=== PATIENT | female | born 1970 | race Caucasian/White ===

== ENCOUNTER 2023-10-25 14:07 | Emergency (ER) | payer OTHER ==
[2023-10-25 14:49] VITALS: TEMP 98.2; O2SAT 99
[2023-10-25] MEDS ORDERED: TORAdol 30 mg Injection IM ONE (15:08)
[2023-10-25] MEDS ORDERED: Norflex 60 MG/2 ML IM ONE (15:08)
[2023-10-25] MEDS ORDERED: Norflex 60 MG/2 ML ONE (15:14)
[2023-10-25] MEDS ORDERED: TORAdol 30 mg Injection ONE (15:14)
--- NOTE | 2023-10-25 15:27 | ERPHSYRPT ---
- History of Present Illness Time Seen by Provider: 10/25/23 14:21 Source: patient Exam Limitations: no limitations Patient Subjective Stated Complaint: Chronic neck pain Triage Nursing Assessment: 52 yr old female pt arrives to ED via POV. Pt pre sents with complaints of left sided chronic neck pain. Pt states that the pain radiates down her left arm. Pt denies injury. Pt is alert, oriented and not in distress. Pt's skin is p/w/d. Pt has no other complaints at this time. Physician History: 52 years old female with history of fibromyalgia, seizure disorder presented in the ER with complaints of increasing left-sided neck pain. Patient reports history of chronic neck and back pain with surgical intervention in the lower back and neck pain is getting worse for almost a month, it is a dull aching burning sensation, feeling of warmth in the left lateral neck with radiation to the left upper extremity making limited mobility of the neck. No weakness of left upper extremity. Denies any fall or trauma. Allergies/Adverse Reactions: amoxicillin Allergy (Mild, Verified 10/25/23 14:29) Rash vancomycin Allergy (Mild, Verified 10/25/23 14:29) Rash Hx Tetanus, Diphtheria Vaccination/Date Given: Yes Hx Influenza Vaccination/Date Given: No Hx Pneumococcal Vaccination/Date Given: No Travel Risk - International Travel Have you traveled outside of the country in past 3 weeks: No - Coronavirus Screening Are you exhibiting any of the following symptoms?: No Close contact with a COVID-19 positive Pt in past 14-21 Days: No - Vaccine Status Have you recieved a Covid-19 vaccination: Yes Piped Pocket Machine Operator: Moderna - Vaccination Dates Date of 2cond Vaccination (if applicable): 2019 - Review of Systems Constitutional: No Symptoms Eyes: No Symptoms Ears, Nose, & Throat: No Symptoms Respiratory: No Symptoms Cardiac: No Symptoms Abdominal/Gastrointestinal: No Symptoms Musculoskeletal: Arthralgias, Back Pain, Neck Pain Skin: No Symptoms Neurological: No Symptoms Endocrine: No Symptoms Hematologic/Lymphatic: No Symptoms - Past Medical History Pertinent Past Medical History: Yes Neurological History: Epilepsy ENT History: No Pertinent History Cardiac History: Hypertension Respiratory History: Asthma Endocrine Medical History: Diabetes Type II Musculoskeletal History: Fibromyalgia GI Medical History: No Pertinent History History: No Pertinent History Psycho-Social History: Anxiety, Depression Female Reproductive Disorders: No Pertinent History Other Medical History: Hiatal hernia - Past Surgical History Past Surgical History: Yes Cardiac: No Pertinent History Respiratory: No Pertinent History Gastrointestinal: Hernia Repair Genitourinary: No Pertinent History Musculoskeletal: Orthopedic Surgery Female Surgical History: Hysterectomy, Section Other Surgical History: back surgeries, disc fusions, carpel tunnel - Social History Smoking Status: Current every day smoker How long have you smoked: 30 years Drug Use: none Patient Lives Alone: No - Nursing Vital Signs Nursing Vital Signs: Initial Vital Signs Temperature 98.2 F 10/25/23 14:27 Pulse Rate 76 10/25/23 14:27 Respiratory Rate 18 10/25/23 14:27 Blood Pressure 137/79 10/25/23 14:27 O2 Sat by Pulse Oximetry 99 10/25/23 14:27 Pain Scale Pain Intensity 8 - Physical Exam General Appearance: no apparent distress Eye Exam: PERRL/EOMI Ears, Nose, Throat Exam: normal ENT inspection Neck Exam: normal inspection, supple, limited range of motion, other (Tenderness left sternomastoid and trapezius area. Restricted range of motion on the right and left with reproducible pain in the left trapezius area.), No midline tenderness Respiratory Exam: normal breath sounds, lungs clear Cardiovascular Exam: regular rate/rhythm, normal heart sounds Back Exam: normal inspection Extremity Exam: normal inspection, normal range of motion, pelvis stable Neurologic Exam: alert, oriented x 3, cooperative, unit controller II-XII nml as tested, nml station & gait, sensation nml, No normal mood/affect, No motor deficits Skin Exam: normal color SpO2 Interpretation: normal SpO2: 99 O2 Delivery: Room Air Ordered Tests: Active Orders 24 hr Category Date Time Status CERVICAL SPINE WO CONTRAST [CT] Stat Exams 10/25/23 15:08 Completed Medication Summary Discontinued Medications Generic Name Dose Route Start Last Admin Trade Name Freq PRN Reason Stop Dose Admin Ketorolac Tromethamine 30 mg 10/25/23 15:08 10/25/23 15:18 Ketorolac Tromethamine 30 Mg/Ml Inj IM 10/25/23 15:09 30 mg STAT ONE Administration Ketorolac Tromethamine Confirm 10/25/23 15:14 Ketorolac Tromethamine 30 Mg/Ml Inj Administered 10/25/23 15:15 Dose 30 mg .ROUTE .STK-MED ONE Orphenadrine Citrate 60 mg 10/25/23 15:08 10/25/23 15:18 Orphenadrine Citrate 60 Mg/2 Ml Vial IM 10/25/23 15:09 60 mg STAT ONE Administration Orphenadrine Citrate Confirm 10/25/23 15:14 Orphenadrine Citrate 60 Mg/2 Ml Vial Administered 10/25/23 15:15 Dose 60 mg .ROUTE .[employer] ONE - Progress Progress Note: 10/25/23 16:40 52 years old is evaluated for left-sided neck pain with radiation to the left upper extremity. Patient description of pain seems to be neuropathic. She has no weakness in the left upper extremity. I have given her a dose of Toradol and Norflex, on reevaluation heart pain is better and able to move her neck better. Patient CT cervical spine showed minimal C6/C7 broad-based bulge which corresponds to her level of pain. Patient is advised to have follow-up outpatient with neurosurgery for further evaluation. I will give her muscle relaxants to go home and also Zofran as patient does not take hydrocodone which makes her nauseated. I will also give her NSAIDs to go home. Discussed signs symptoms of worsening needing return to ER which she seems understanding. Stable for discharge. Counseled pt/family regarding: diagnosis, need for follow-up, rad results Medical Desision Making - Diagnostic Testing Diagnostic test were ordered, analyzed, and reviewed by me: Yes Radiological Interpretation: Reviewed by me - Risk of complications The pt has a mod risk of morbidity or mortality based on: Need for prescription drug management - Departure Departure Disposition: Home Clinical Impression: Cervicalgia Condition: Stable Critical Care Time: No Referrals: BELLA NEELY DO [Primary Care Provider] - Follow up with PCP 1 day Instructions: Generalized Neck Pain (DC), Neck Pain Exercises Additional Instructions: Take Tylenol/ibuprofen as needed. Continue with your pain medications. Follow- up with primary care/neurosurgery for further evaluation and possible need for MRI. Return to ER for any worsening. Prescriptions: Ibuprofen 600 mg PO Q6HPRN PRN 10 Days #20 tablet PRN Reason: Pain Cyclobenzaprine HCl 10 mg [Flexeril 10 MG] 10 mg PO TID #20 tablet Ondansetron ODT 4 MG [Zofran Odt 4 mg] 1 ea PO QIDPRN PRN #7 tablet PRN Reason: n/v
--- NOTE | 2023-10-25 16:34 | XRAY ---
Indication: Left neck pain. Multiple contiguous axial images obtained through the cervical spine. Sagittal and coronal reformatted images obtained. Comparison: None Anatomic variant for nonunited posterior arch C1. Otherwise no acute fracture, suspicious bony lesions, or spinal canal stenosis. Minimal C6-C7 broad-based disc bulge. Facets are symmetric. Sagittal and coronal reformatted images demonstrates lordotic straightening, positional versus paraspinal spasm. Vertebral body heights/disc spaces maintained. No acute compression fracture, subluxation, or jumped facet. Normal appearing craniocervical junction. Visualized noncontrasted soft tissues demonstrates minimal right carotid calcifications. Lung apices and base of brain unremarkable. Impression: Lordotic straightening, minimal C6-C7 broad-based disc bulge, and minimal right carotid calcifications. Remaining CT cervical spine is negative.
[2023-10-25 16:58] VITALS: BP 130/74; PULSE 80; RESP 19
== END 2023-10-25 16:58 | disposition home or self-care (01) ==
LOC: ED 14:07
DX: M54.2 Cervicalgia (principal); I10 Essential (primary) hypertension; E11.9 Type 2 diabetes mellitus without complications; Z79.899 Other long term (current) drug therapy; Z72.0 Tobacco use
CPT/HCPCS: 72125; 96372; 99283; J1885; J2360

== ENCOUNTER 2023-11-12 19:08 | Emergency (ER) | payer OTHER ==
--- NOTE | 2023-11-12 19:18 | ERPHSYRPT ---
- History of Present Illness Time Seen by Provider: 11/12/23 19:18 Source: patient, EMS Exam Limitations: no limitations Physician History: This is a 52-year-old white female patient who presents to the emergency department vomiting and is experiencing a severe headache. Patient states she has had this headache for 3 days. Patient has history of migraine headaches. She did not suffer any acute traumatic injury. Patient was brought into the emergency department by the ambulance service. There is an IV in place. Patient received intravenous Zofran but she continues to have nausea and vomiting in the emergency department. Patient denies chest pain. Patient d enies shortness of breath. Patient has no abdominal pain. Patient has a history of epilepsy, hypertension, fibromyalgia and diabetes. She also has a history of asthma and anxiety. Timing/Duration: today Head Pain Location: global Severity of Pain-Max: moderate Severity of Pain-Current: moderate Recent Head Trauma: no recent headache/trauma, chronic headaches Modifying Factors: Improves With: exposure to light, noise Associated Symptoms: nausea/vomiting, sensitive to light Previous symptoms: same symptoms as today, no recent treatment Allergies/Adverse Reactions: amoxicillin Allergy (Mild, Verified 11/12/23 19:09) Rash vancomycin Allergy (Mild, Verified 11/12/23 19:09) Rash Home Medications: Amlodipine Besylate 10 mg PO DAILY 11/12/23 [History] Atorvastatin Calcium 20 mg PO DAILY 11/12/23 [History] Hydrocodone/Acetaminophen [Hydrocodone-Acetamin 5-325 mg] 1 each PO BID PRN 11/12/23 [History] Tirzepatide [Mounjaro] 5 mg SQ WEEKLY 11/12/23 [History] lamoTRIgine [Lamotrigine] 150 mg PO BID 11/12/23 [History] levETIRAcetam [Levetiracetam] 500 mg PO TID 11/12/23 [History] lisinopriL [Lisinopril] 40 mg PO DAILY 11/12/23 [History] Hx Tetanus, Diphtheria Vaccination/Date Given: Yes Hx Influenza Vaccination/Date Given: No Hx Pneumococcal Vaccination/Date Given: No Travel Risk - International Travel Have you traveled outside of the country in past 3 weeks: No - Coronavirus Screening Are you exhibiting any of the following symptoms?: No Close contact with a COVID-19 positive Pt in past 14-21 Days: No - Vaccine Status Have you recieved a Covid-19 vaccination: Yes Scientific Diver: Moderna - Vaccination Dates Date of 2cond Vaccination (if applicable): 2019 - Review of Systems Constitutional: No Symptoms Eyes: No Symptoms Ears, Nose, & Throat: No Symptoms Respiratory: No Symptoms Cardiac: No Symptoms Abdominal/Gastrointestinal: No Symptoms Genitourinary Symptoms: No Symptoms Musculoskeletal: No Symptoms Neurological: Headache Psychological: No Symptoms Endocrine: No Symptoms Hematologic/Lymphatic: No Symptoms Immunological/Allergic: No Symptoms All Other Systems: Reviewed and Negative - Past Medical History Pertinent Past Medical History: Yes Neurological History: Epilepsy ENT History: No Pertinent History Cardiac History: Hypertension Respiratory History: Asthma Endocrine Medical History: Diabetes Type II Musculoskeletal History: Fibromyalgia GI Medical History: No Pertinent History History: No Pertinent History Psycho-Social History: Anxiety, Depression Female Reproductive Disorders: No Pertinent History Other Medical History: Hiatal hernia - Past Surgical History Past Surgical History: Yes Cardiac: No Pertinent History Respiratory: No Pertinent History Gastrointestinal: Hernia Repair Genitourinary: No Pertinent History Musculoskeletal: Orthopedic Surgery Female Surgical History: Hysterectomy, Section Other Surgical History: back surgeries, disc fusions, carpel tunnel - Social History Smoking Status: Current every day smoker How long have you smoked: 30 years Drug Use: none Patient Lives Alone: No - Nursing Vital Signs Nursing Vital Signs: Initial Vital Signs Temperature 98.0 F 11/12/23 19:08 Pulse Rate 96 H 11/12/23 19:08 Respiratory Rate 20 11/12/23 19:08 Blood Pressure 159/96 11/12/23 19:08 O2 Sat by Pulse Oximetry 99 11/12/23 19:08 Pain Scale Pain Intensity 7 - Physical Exam General Appearance: mild distress, alert, anxiety Eye Exam: PERRL/EOMI, eyes nml inspection Ears, Nose, Throat Exam: normal ENT inspection, moist mucous membranes Neck Exam: normal inspection, non-tender, supple, full range of motion Respiratory Exam: normal breath sounds, lungs clear, airway intact, No chest tenderness, No respiratory distress Cardiovascular Exam: regular rate/rhythm, normal heart sounds, normal peripheral pulses Gastrointestinal/Abdominal Exam: soft, normal bowel sounds, No tenderness Back Exam: normal inspection, normal range of motion, No CVA tenderness, No vertebral tenderness Extremity Exam: normal inspection, normal range of motion, pelvis stable Mental Status Exam: alert, oriented x 3, cooperative catcher plug Exam: normal hearing, normal speech, PERRL, tongue midline Skin Exam: normal color, warm, dry Lymphatic Exam: No adenopathy SpO2 Interpretation: normal O2 Delivery: Room Air - Course Nursing assessment & vital signs reviewed: Yes Ordered Tests: Active Orders 24 hr Category Date Time Status HEAD WITHOUT CONTRAST [CT] Stat Exams 11/12/23 19:27 Taken Medication Summary Discontinued Medications Generic Name Dose Route Start Last Admin Trade Name Freq PRN Reason Stop Dose Admin Diphenhydramine HCl 25 mg 11/12/23 20:14 11/12/23 20:22 Diphenhydramine Hcl 50 Mg/Ml Vial IV 11/12/23 20:15 25 mg STAT ONE Administration Diphenhydramine HCl Confirm 11/12/23 20:20 Diphenhydramine Hcl 50 Mg/Ml Vial Administered 11/12/23 20:21 Dose 50 mg .ROUTE .STK-MED ONE Hydromorphone HCl 1 mg 11/12/23 19:26 11/12/23 19:51 Hydromorphone 1 Mg/1ml Inj IV 11/12/23 19:27 1 mg STAT ONE Administration Hydromorphone HCl Confirm 11/12/23 19:48 Hydromorphone 1 Mg/1ml Inj Administered 11/12/23 19:49 Dose 1 mg .ROUTE .STK-MED ONE Ketorolac Tromethamine 30 mg 11/12/23 19:26 11/12/23 19:50 Ketorolac Tromethamine 30 Mg/Ml Inj IV 11/12/23 19:27 30 mg STAT ONE Administration Ketorolac Tromethamine Confirm 11/12/23 19:47 Ketorolac Tromethamine 30 Mg/Ml Inj Administered 11/12/23 19:48 Dose 30 mg .ROUTE .STK-MED ONE Ondansetron HCl 4 mg 11/12/23 19:27 11/12/23 19:42 Ondansetron Hcl 4 Mg/2 Ml Vial IV 11/12/23 19:28 Not Given STAT ONE Prochlorperazine Edisylate 5 mg 11/12/23 19:44 11/12/23 19:49 Prochlorperazine Edisylate 10 Mg/2 Ml Vial IV 11/12/23 19:45 5 mg STAT ONE Administration Prochlorperazine Edisylate Confirm 11/12/23 19:48 Prochlorperazine Edisylate 10 Mg/2 Ml Vial Administered 11/12/23 19:49 Dose 10 mg .ROUTE .[employer]-MED ONE - Progress Progress: improved, re-examined Air Movement: good Progress Note: 11/12/23 19:50 This patient's medical issue is 1 of low to moderate complexity. Level complex in the workup performed is based on review of the patient's past medical history, review of patient's medication list, review of the patient drug allergy list, history of present illness and physical findings on examination. The workup in this patient includes providing the patient with antiemetics as well as Dilaudid 1 mg, Toradol 30 mg intravenously and performing a CT scan of the head without contrast. 11/12/23 21:42 CT scan of the head without contrast was interpreted by the radiologist. This is a negative study. It is a normal head CT without contrast study. Blood Culture(s) Obtained: No Antibiotics given: No Counseled pt/family regarding: diagnosis, need for follow-up, rad results Medical Desision Making - Independent Historian Additional History obtained from: Servomechanism Designer/EMT - Diagnostic Testing Diagnostic test were ordered, analyzed, and reviewed by me: Yes Radiological Interpretation: Reviewed by me, Teleradiologist Report - Risk of complications Minimal Risk: Minimal risk of morbidity - Departure Departure Disposition: Home Clinical Impression: Headache Condition: Stable Critical Care Time: No Referrals: BELLA NEELY DO [Primary Care Provider] - Follow up/PCP as directed Additional Instructions: Take your medications as prescribed. Call your prescribing provider and/or neurology tomorrow, 11/13/2023, to make arrangements for further evaluation management within the next 3 to 5 days.
[2023-11-12 19:22] VITALS: TEMP 98
[2023-11-12] MEDS: Zofran 4 MG/2 ML VIAL IV ONE (19:42)
[2023-11-12] MEDS ORDERED: TORAdol 30 mg Injection ONE (19:47)
[2023-11-12] MEDS ORDERED: Hydromorphone 1 mg/ml Injection ONE (19:48)
[2023-11-12] MEDS ORDERED: Compazine 10 MG/2 ML ONE (19:48)
[2023-11-12] MEDS: Compazine 10 MG/2 ML IV ONE (19:49)
[2023-11-12] MEDS: TORAdol 30 mg Injection IV ONE (19:50)
[2023-11-12] MEDS: Hydromorphone 1 mg/ml Injection IV ONE (19:51)
[2023-11-12] MEDS ORDERED: BENADRYL 50 MG/ML ONE (20:20)
[2023-11-12] MEDS: BENADRYL 50 MG/ML IV ONE (20:22)
[2023-11-12 22:09] VITALS: BP 115/70; PULSE 80; RESP 18; O2SAT 98
--- NOTE | 2023-11-13 08:32 | XRAY ---
Indication: Headache and vomiting. Multiple contiguous axial images obtained through the head without contrast. Comparison: None Normal appearing brain parenchyma, ventricles, and bony calvarium. Visualized paranasal sinuses and mastoid air cells are clear. Impression: Normal CT head without contrast exam.
== END 2023-11-12 22:10 | disposition home or self-care (01) ==
LOC: ED 19:08
DX: R51.9 Headache, unspecified (principal); R11.2 Nausea with vomiting, unspecified; I10 Essential (primary) hypertension; E11.9 Type 2 diabetes mellitus without complications; Z79.891 Long term (current) use of opiate analgesic; Z79.85 Long-term (current) use of injectable non-insulin antidiabetic drugs; Z79.899 Other long term (current) drug therapy; Z72.0 Tobacco use
CPT/HCPCS: 70450; 96374; 99284; J1170; J1200; J1885

== ENCOUNTER 2024-02-11 14:18 | Emergency (ER) | payer OTHER ==
--- NOTE | 2024-02-11 14:54 | ERPHSYRPT ---
- History of Present Illness Time Seen by Provider: 02/11/24 14:54 Source: patient Exam Limitations: no limitations Physician History: This is a 53-year-old white female patient Dr. Neely who presents with neck pain that has been present for more than 6 months. She became concerned because the pain in her neck is more intense and has shooting pain into bilateral upper extremities. Patient has known history of degenerative disc disease and osteoarthritis. Patient also has a history of fibromyalgia. Patient sees pain management. Patient drove herself into the hospital and cannot get a ride home. Patient is a daily smoker of cigarettes. Patient denies being on narcotics at this time. She has been using ibuprofen for the pain and it is not helping much. Patient has a history of hypertension, hyperlipidemia, seizure disorder, peripheral neuropathy, osteoarthritis and diabetes. She denies chest pain. She denies shortness of breath. Timing/Duration: worse (In the last week), other (Symptoms present for greater than 6 months) Modifying Factors: Improves With: movement Associated Symptoms: denies symptoms (Worsens) Allergies/Adverse Reactions: amoxicillin Allergy (Mild, Verified 02/11/24 14:48) Rash vancomycin Allergy (Mild, Verified 02/11/24 14:48) Rash Home Medications: Amlodipine Besylate 10 mg PO DAILY 11/12/23 [History] Atorvastatin Calcium 20 mg PO DAILY 11/12/23 [History] Tirzepatide [Mounjaro] 5 mg SQ WEEKLY 11/12/23 [History] lamoTRIgine [Lamotrigine] 150 mg PO BID 11/12/23 [History] levETIRAcetam [Levetiracetam] 500 mg PO TID 11/12/23 [History] lisinopriL [Lisinopril] 40 mg PO DAILY 11/12/23 [History] Hx Tetanus, Diphtheria Vaccination/Date Given: Yes Hx Influenza Vaccination/Date Given: No Hx Pneumococcal Vaccination/Date Given: No Travel Risk - International Travel Have you traveled outside of the country in past 3 weeks: No - Emerging Infectious Disease Are you exhibiting symptoms associated with any current EIDs: No - Review of Systems Constitutional: No Symptoms Eyes: No Symptoms Ears, Nose, & Throat: No Symptoms Respiratory: No Symptoms Cardiac: No Symptoms Abdominal/Gastrointestinal: No Symptoms Genitourinary Symptoms: No Symptoms Musculoskeletal: Neck Pain Skin: No Symptoms Neurological: No Symptoms Psychological: No Symptoms Endocrine: No Symptoms Hematologic/Lymphatic: No Symptoms Immunological/Allergic: No Symptoms All Other Systems: Reviewed and Negative - Past Medical History Pertinent Past Medical History: Yes Neurological History: Epilepsy, Peripheral Neuropathy, Other ENT History: No Pertinent History Cardiac History: Hypertension Respiratory History: No Pertinent History Endocrine Medical History: Diabetes Type II Musculoskeletal History: Degenerative Disk Disease, Fibromyalgia, Osteoarthritis GI Medical History: No Pertinent History History: No Pertinent History Psycho-Social History: Anxiety, Depression Female Reproductive Disorders: No Pertinent History Other Medical History: Hiatal hernia - Past Surgical History Past Surgical History: Yes Cardiac: No Pertinent History Respiratory: No Pertinent History Gastrointestinal: Hernia Repair Genitourinary: No Pertinent History Musculoskeletal: Orthopedic Surgery Female Surgical History: Hysterectomy, Section Other Surgical History: back surgeries, disc fusions, carpel tunnel - Social History Smoking Status: Current every day smoker How long have you smoked: 30 years Exposure to second hand smoke: No Drug Use: none Patient Lives Alone: No - Nursing Vital Signs Nursing Vital Signs: Initial Vital Signs Temperature 97.7 F 02/11/24 14:54 Pulse Rate 97 H 02/11/24 14:54 Respiratory Rate 18 02/11/24 14:54 Blood Pressure 127/90 02/11/24 14:54 O2 Sat by Pulse Oximetry 97 02/11/24 14:54 Pain Scale Pain Intensity 6 - Physical Exam General Appearance: no apparent distress, alert, anxiety Eye Exam: PERRL/EOMI, eyes nml inspection Ears, Nose, Throat Exam: normal ENT inspection, moist mucous membranes Neck Exam: normal inspection, supple, full range of motion Respiratory Exam: airway intact, No chest tenderness, No respiratory distress Gastrointestinal/Abdomen Exam: No tenderness Pelvic Exam: not done Rectal Exam: not done Back Exam: normal inspection, normal range of motion, No CVA tenderness, No vertebral tenderness Extremity Exam: normal inspection, normal range of motion, pelvis stable Neurologic Exam: alert, oriented x 3, cooperative, nitrocellulose operator II-XII nml as tested, normal mood/affect, nml cerebellar function, nml station & gait, sensation nml Skin Exam: normal color, warm, dry Lymphatic Exam: No adenopathy SpO2 Interpretation: normal O2 Delivery: Room Air - Course Nursing assessment & vital signs reviewed: Yes Ordered Tests: Active Orders 24 hr Category Date Time Status CERVICAL SPINE WO CONTRAST [CT] Stat Exams 02/11/24 15:41 Completed - Progress Progress: unchanged Progress Note: 02/11/24 15:59 My medical decision making and the assignment of low complexity to this patient's medical issue today is based on review of the patient's past medical history, review of the patient's medication list, review of patient drug allergy list, history present illness and physical findings on examination. The workup in this patient includes CT scan of the cervical spine. Differential diagnosis includes cervical strain, cervical spine fracture, cervical spine subluxation, muscle skeletal pain 02/11/24 16:59 CT scan of the cervical spine without contrast was interpreted by the radiologist and I reviewed the impression. Depression states no acute fracture. There is no evidence of spinal canal stenosis. There is a stable C6-C7 disc bulge present. This is compared to a similar study performed in October 2023. Patient is aware that she is receiving Percocet pain medication. This may have an effect on her outpatient pain clinic/specialist management. Counseled pt/family regarding: diagnosis, need for follow-up, rad results Medical Desision Making - Diagnostic Testing Diagnostic test were ordered, analyzed, and reviewed by me: Yes Radiological Interpretation: Reviewed by me, Teleradiologist Report - Risk of complications The pt has a mod risk of morbidity or mortality based on: Need for prescription drug management - Departure Clinical Impression: Cervical spine pain Condition: Stable Critical Care Time: No Referrals: BELLA NEELY DO [Primary Care Provider] - Follow up/PCP as directed Additional Instructions: Take your medications as prescribed. Stop your ibuprofen. Monitor your blood sugar while taking the prednisone. Call your prescribing provider and your pain specialist on 02/12/2024, to make arranges for follow-up appointment to be seen within the next 3 to 5 days. Prescriptions: Oxycodone HCl/Acetaminophen [Percocet 5-325 mg Tablet] 1 each PO Q8H PRN PRN #6 tablet MDD 3 PRN Reason: Moderate To Severe Pain Prednisone 10 mg [Deltasone 10 mg] 10 mg PO TID #12 tablet
[2024-02-11 15:04] VITALS: PULSE 97; RESP 18; TEMP 97.7
[2024-02-11 16:56] VITALS: BP 115/86; O2SAT 99
--- NOTE | 2024-02-11 16:57 | XRAY ---
Indication: Chronic neck pain for years. Multiple contiguous axial images obtained through the cervical spine. Sagittal and coronal reformatted images obtained. Comparison: October 25, 2023 Axial images again negative for acute fracture, suspicious bony lesions, or spinal canal stenosis. Stable minimal C6-C7 broad-based disc bulge. Facets are symmetric. Sagittal and coronal reformatted images again demonstrates lordotic straightening. No acute compression fracture, subluxation, or jumped facet. Normal appearing craniocervical junction. Visualized noncontrasted soft tissues again demonstrates minimal right carotid calcifications. Lung apices clear. Base of brain unremarkable. Impression: Stable cervical lordotic straightening, minimal C6-C7 broad-based disc bulge, and minimal right carotid calcifications. Remaining CT cervix spine is again normal.
== END 2024-02-11 17:28 | disposition home or self-care (01) ==
LOC: ED 14:18
DX: M54.2 Cervicalgia (principal); I10 Essential (primary) hypertension; E78.5 Hyperlipidemia, unspecified; E11.42 Type 2 diabetes mellitus with diabetic polyneuropathy; Z79.891 Long term (current) use of opiate analgesic; Z79.52 Long term (current) use of systemic steroids; Z79.85 Long-term (current) use of injectable non-insulin antidiabetic drugs; Z79.899 Other long term (current) drug therapy; Z72.0 Tobacco use
CPT/HCPCS: 72125; 99283

== ENCOUNTER 2024-04-02 09:30 | Day surgery (SDC) | payer OTHER ==
[2024-04-02] MEDS ORDERED: Decadron 4 MG INJ IV ONE (09:31)
[2024-04-02] MEDS ORDERED: Sodium Chloride 0.9(Preservative Free) 10 ML IJ ONE (09:31)
[2024-04-02] MEDS ORDERED: Lactated Ringers 1,000 ML IV ONE (11:18)
[2024-04-02] MEDS ORDERED: DIPRIVAN 200 MG/20 ML IV ONE (11:40)
[2024-04-02] MEDS ORDERED: MORPHINE SULFATE 2 MG INJ ONE (12:12)
--- NOTE | 2024-04-02 13:18 | XRAY ---
Indication: Left L4-S1 transforaminal SUSANNE. Intraoperative fluoroscopy provided for 30 seconds. 5 digital spot images submitted for interpretation demonstrates posterior needle tips projecting over the expected left L4 and L5 nerve roots. Small amount of contrast injected for needle tip placement. Correlate with intraoperative findings/report. Incidental bilateral L4-S1 fusion hardware.
--- NOTE | 2024-04-02 13:24 | XRAY ---
30 seconds of fluoroscopy was used in surgery for a left L4-S1 transforaminal SUSANNE.
== END 2024-04-02 12:33 | disposition home or self-care (01) ==
LOC: SDC-PAIN 09:30
PROVIDERS: ATTEND Psychiatry & Neurology Pain Medicine
DX: M54.16 Radiculopathy, lumbar region (principal); E11.9 Type 2 diabetes mellitus without complications
CPT/HCPCS: 64483; 64484; 72100; 77003; 82947; J1100; J2270; J2704; Q9966

== ENCOUNTER 2025-08-05 10:24 | Emergency (ER) | payer OTHER ==
[2025-08-05 10:38] VITALS: TEMP 97
--- NOTE | 2025-08-05 10:59 | ERPHSYRPT ---
- History of Present Illness Time Seen by Provider: 08/05/25 10:50 Source: patient, family Exam Limitations: no limitations Patient Subjective Stated Complaint: PT HERE FOR LOOSE STOOLS,HEADACHE.AND EPIGASTRIC PAIN OFF AND ON, SHE STATES LAST OTC MEDS WAS LAST NIGHT, LAST STOOL WAS YESTERDAY, NO FEVER Triage Nursing Assessment: PT WALKED IN, RESP EASY, SKIN W/D/P, NO EDEMA NOTED,MOVES ALL EXT WELL, MUCUS MEMBRANES MOIST. ABD FLAT , NO COUGH Physician History: This is a 54-year-old white female patient who arrives by private vehicle and is a patient of Dr. Neely with a complaint of diarrhea, headache and abdominal pain that began yesterday. Patient has a history of fibromyalgia and she hurts all over. She does not have specific chest pain or shortness of breath. She has not had a fever. Her oral intake has decreased since yesterday per her report. Patient has had a hysterectomy in the past and a section. She does not have a history of coronary artery disease. She has a history of hypertension, hyperlipidemia, seizure disorder, type 2 diabetes, gastroesophageal reflux disease, anxiety/depression, fibromyalgia and asthma. Timing/Duration: yesterday Severity: mild Modifying Factors: Improves With: other Associated Symptoms: nausea (Decreased oral intake), abdominal pain, weakness, other (Diarrhea), No shortness of breath, No chest pain Allergies/Adverse Reactions: amoxicillin Allergy (Mild, Verified 08/05/25 10:35) Rash vancomycin Allergy (Mild, Verified 08/05/25 10:35) Rash Home Medications: Amlodipine Besylate 10 mg PO DAILY 11/12/23 [History] Atorvastatin Calcium 20 mg PO DAILY 11/12/23 [History] lamoTRIgine [Lamotrigine] 150 mg PO BID 11/12/23 [History] levETIRAcetam [Levetiracetam] 500 mg PO TID 11/12/23 [History] lisinopriL [Lisinopril] 40 mg PO DAILY 11/12/23 [History] Fluticasone Propionate 100 mcg IH BID 05/08/25 [History] Omeprazole 40 mg PO DAILY 05/08/25 [History] Semaglutide [Ozempic] 1 mg SQ WEEKLY 05/08/25 [History] Hx Tetanus, Diphtheria Vaccination/Date Given: No Hx Influenza Vaccination/Date Given: No Hx Pneumococcal Vaccination/Date Given: No Travel Risk - International Travel Have you traveled outside of the country in past 3 weeks: No - Emerging Infectious Disease Are you exhibiting symptoms associated with any current EIDs: No Symptoms: Diarrhea, Headaches/Body Aches/ - Review of Systems Constitutional: Weakness Eyes: No Symptoms Ears, Nose, & Throat: No Symptoms Respiratory: No Symptoms Cardiac: No Symptoms Abdominal/Gastrointestinal: Abdominal Pain, Nausea, Diarrhea, Appetite Changes Genitourinary Symptoms: No Symptoms Musculoskeletal: Arthralgias, Myalgias Skin: No Symptoms Neurological: No Symptoms Psychological: No Symptoms Endocrine: No Symptoms Hematologic/Lymphatic: No Symptoms Immunological/Allergic: No Symptoms All Other Systems: Reviewed and Negative - Past Medical History Pertinent Past Medical History: Yes Neurological History: Epilepsy ENT History: No Pertinent History Cardiac History: Hypertension Respiratory History: Asthma Endocrine Medical History: Diabetes Type II Musculoskeletal History: Arthritis, Fibromyalgia GI Medical History: No Pertinent History History: No Pertinent History Psycho-Social History: Anxiety, Depression Female Reproductive Disorders: No Pertinent History Other Medical History: PMH: FIBROMYALGIA, ABSENT SEIZURES (LAST ONE 2 MONTHS), HTN (MEDICATED), DM II, NEUROPATHY. PSH: LAMINECTOMY, DISCECTOMY, AND FUSION (2000, 2005, 2019), BILATERAL CARPAL TUNNEL SX, HERNIA REPAIR, PARTIAL HYSTERECTOMY, C SECTION, LINKS DEVICE AT BOTTOM OF ESOPHAGUS - Past Surgical History Past Surgical History: Yes Cardiac: No Pertinent History Respiratory: No Pertinent History Gastrointestinal: Hernia Repair Genitourinary: No Pertinent History Musculoskeletal: Orthopedic Surgery Female Surgical History: Hysterectomy, Section Other Surgical History: back surgeries, disc fusions, carpel tunnel - Female History Hx Last Menstrual Period: HYSTER Hx Now: No - Social History Smoking Status: Former smoker Exposure to second hand smoke: Yes Drug Use: none - Social Determinants of Health Will the patient participate in the screening: Yes Do you worry about a steady place to live?: No Do you have any problems with any of the following?: No known problems In the past 12 months,have you had to go without utilities?: Yes Transportation Issues: No Has anyone in your support network made you feel unsafe?: No Have you or anyone in your house had to go w/o enough food: No Comment: WORRIES BUT DOES NOT GO WITHOUT - Nursing Vital Signs Nursing Vital Signs: Initial Vital Signs Pulse Rate 86 08/05/25 10:33 Respiratory Rate 23 08/05/25 10:33 Blood Pressure 148/97 08/05/25 10:33 O2 Sat by Pulse Oximetry 96 08/05/25 10:33 Pain Scale Pain Intensity 7 - Physical Exam General Appearance: no apparent distress, alert, anxiety Eye Exam: PERRL/EOMI, eyes nml inspection Ears, Nose, Throat Exam: dry mucous membranes Neck Exam: normal inspection, non-tender, supple, full range of motion Respiratory Exam: normal breath sounds, lungs clear, airway intact, No chest tenderness, No respiratory distress Cardiovascular Exam: regular rate/rhythm, normal heart sounds, normal peripheral pulses Gastrointestinal/Abdomen Exam: soft, normal bowel sounds, tenderness (Mild diffuse), guarding Pelvic Exam: not done Rectal Exam: not done Back Exam: normal inspection, normal range of motion, No CVA tenderness, No vertebral tenderness Extremity Exam: normal inspection, normal range of motion, pelvis stable Neurologic Exam: alert, oriented x 3, cooperative, rip tailer II-XII nml as tested, nml cerebellar function, nml station & gait, sensation nml Skin Exam: normal color, warm, dry Lymphatic Exam: No adenopathy SpO2 Interpretation: normal SpO2: 100 O2 Delivery: Room Air - Course Nursing assessment & vital signs reviewed: Yes EKG Interpreted by Me: RATE ([id number]), Sinus Rhythm, NORMAL AXIS, NORMAL INTERVALS, NORMAL QRS, Other (QTc is 444. No acute ischemia.) Ordered Tests: Active Orders 24 hr Category Date Time Status IV Insertion STAT Care 08/05/25 11:08 Active ABDOMEN AND PELVIS W/0 CONTRAS [CT] Stat Exams 08/05/25 11:11 Completed AMYLASE Stat Lab 08/05/25 11:25 Completed BLOOD CULTURE Stat Lab 08/05/25 11:20 Received CBC W DIFF Stat Lab 08/05/25 11:25 Completed CMP Stat Lab 08/05/25 11:25 Completed LIPASE Stat Lab 08/05/25 11:25 Completed Lactic Acid Stat Lab 08/05/25 11:25 Completed MAG [MAGNESIUM] Stat Lab 08/05/25 11:25 Completed MONO SCREEN Stat Lab 08/05/25 11:25 Completed UA W/RFX UR CULTURE Stat Lab 08/05/25 11:10 Ordered Medication Summary Discontinued Medications Generic Name Dose Route Start Last Admin Trade Name Freq PRN Reason Stop Dose Admin Sodium Chloride 1,000 mls @ 999 mls/hr 08/05/25 11:08 08/05/25 12:53 Sodium Chloride 0.9% 1000 Ml IV 08/05/25 12:08 Infused .Q1H1M STA Infusion Sodium Chloride Confirm 08/05/25 11:17 Sodium Chloride 0.9% 1000 Ml Administered 08/05/25 11:18 Dose 1,000 mls @ ud .ROUTE .STK-MED ONE Pantoprazole Sodium 40 mg 08/05/25 11:08 08/05/25 11:22 Pantoprazole 40 Mg Vial IV 08/05/25 11:09 40 mg STAT ONE Administration Pantoprazole Sodium Confirm 08/05/25 11:17 Pantoprazole 40 Mg Vial Administered 08/05/25 11:18 Dose 40 mg IV .STK-MED ONE Lab/Rad Data: Laboratory Result Diagrams 08/05/25 11:25 08/05/25 11:25 Laboratory Results 08/05/25 08/05/25 08/05/25 Range/Units 11:25 11:25 11:25 WBC (3.98-10.04) x10^3/uL RBC (3.93-5.22) x10^6/uL Hgb (11.2-15.7) g/dL Hct (34.1-44.9) % MCV (79.4-94.8) fL MCH (25.6-32.2) pg MCHC (32.2-35.5) g/dL RDW (11.7-14.4) % Plt Count (182-369) x10^3/uL MPV (9.4-12.3) fL Gran % (34.0-71.1) % Immature Gran % (Auto) (0.001-0.429) % Nucleat RBC Rel Count (0.00-0.2) % Eos # (Auto) (0.04-0.36) x10^3/uL Immature Gran # (Auto) (0.001-0.031) x10^3u/L Absolute Lymphs (auto) (1.18-3.74) x10^3/uL Absolute Monos (auto) (0.24-0.86) x10^3/uL Absolute Nucleated RBC (0.00-0.012) x10^3u/L Lymphocytes % (19.3-51.7) % Monocytes % (4.7-12.5) % Eosinophils % (0.7-5.8) % Basophils % (0.1-1.2) % Absolute Granulocytes (1.56-6.13) x10^3/uL Basophils # (0.01-0.08) x10^3/uL Sodium 135 (135-145) mmol/L Potassium 3.7 (3.5-5.1) mmol/L Chloride 105 (98-107) mmol/L Carbon Dioxide 18 L (22-30) mmol/L Anion Gap 16.1 H (5-15) MEQ/L BUN 14 (7-17) mg/dL Creatinine 0.64 (0.52-1.04) mg/dL Estimated GFR 106.3 ML/MIN Glucose 70 L (74-106) mg/dL Lactic Acid (0.4-2.0) Calcium 8.7 (8.4-10.2) mg/dL Magnesium 2.1 (1.6-2.3) mg/dL Total Bilirubin 0.60 (0.2-1.3) mg/dL AST 22 (14-36) U/L ALT 13 (0-35) U/L Alkaline Phosphatase 143 H (38-126) U/L Serum Total Protein 7.3 (6.3-8.2) g/dL Albumin 4.2 (3.5-5.0) g/dL Amylase 57 (30-110) U/L Lipase 35 (23-300) U/L Monoscreen POSITIVE A (NEGATIVE) Influenza Type A Ag (NEGATIVE) Influenza Type B Ag (NEGATIVE) RSV (PCR) (NEGATIVE) SARS-CoV-2 (PCR) (NEGATIVE) 08/05/25 08/05/25 08/05/25 Range/Units 11:25 11:25 11:20 WBC 9.8 (3.98-10.04) x10^3/uL RBC 4.79 (3.93-5.22) x10^6/uL Hgb 13.9 (11.2-15.7) g/dL Hct 42.6 (34.1-44.9) % MCV 88.9 (79.4-94.8) fL MCH 29.0 (25.6-32.2) pg MCHC 32.6 (32.2-35.5) g/dL RDW 12.0 (11.7-14.4) % Plt Count 312 (182-369) x10^3/uL MPV 9.2 L (9.4-12.3) fL Gran % 82.2 H (34.0-71.1) % Immature Gran % (Auto) 0.3 (0.001-0.429) % Nucleat RBC Rel Count 0.0 (0.00-0.2) % Eos # (Auto) 0.05 (0.04-0.36) x10^3/uL Immature Gran # (Auto) 0.03 (0.001-0.031) x10^3u/L Absolute Lymphs (auto) 1.03 L (1.18-3.74) x10^3/uL Absolute Monos (auto) 0.60 (0.24-0.86) x10^3/uL Absolute Nucleated RBC 0.00 (0.00-0.012) x10^3u/L Lymphocytes % 10.5 L (19.3-51.7) % Monocytes % 6.1 (4.7-12.5) % Eosinophils % 0.5 L (0.7-5.8) % Basophils % 0.4 (0.1-1.2) % Absolute Granulocytes 8.03 H (1.56-6.13) x10^3/uL Basophils # 0.04 (0.01-0.08) x10^3/uL Sodium (135-145) mmol/L Potassium (3.5-5.1) mmol/L Chloride (98-107) mmol/L Carbon Dioxide (22-30) mmol/L Anion Gap (5-15) MEQ/L BUN (7-17) mg/dL Creatinine (0.52-1.04) mg/dL Estimated GFR ML/MIN Glucose (74-106) mg/dL Lactic Acid 0.7 (0.4-2.0) Calcium (8.4-10.2) mg/dL Magnesium (1.6-2.3) mg/dL Total Bilirubin (0.2-1.3) mg/dL AST (14-36) U/L ALT (0-35) U/L Alkaline Phosphatase (38-126) U/L Serum Total Protein (6.3-8.2) g/dL Albumin (3.5-5.0) g/dL Amylase (30-110) U/L Lipase (23-300) U/L Monoscreen (NEGATIVE) Influenza Type A Ag NEGATIVE (NEGATIVE) Influenza Type B Ag NEGATIVE (NEGATIVE) RSV (PCR) NEGATIVE (NEGATIVE) SARS-CoV-2 (PCR) NEGATIVE (NEGATIVE) - Progress Progress: improved, re-examined Progress Note: 08/05/25 11:46 My medical decision making and the assignment of moderate complexity of this patient's medical issue today is based on review of the patient's past medical history, reviewed patient's medication list, reviewed patient drug allergy list, history of present illness and physical findings on examination. The workup in this patient includes placement of intravenous line, CBC, CMP, amylase, lipase, urinalysis, viral swabs, monotest, CT scan of the abdomen pelvis without contrast. Patient is refusing narcotic medication. She is also refusing Tylenol and refusing ibuprofen medication as they do not work for her fibromyalgia pain. Differential diagnosis includes was not limited to fibromyalgia, viral illness, electrolyte abnormalities, dehydration, urinary tract infection 08/05/25 13:32 I interpreted the patient's laboratory data results that have returned. The urinalysis is pending. Patient is testing positive for mononucleosis. The CT scan of the abdomen pelvis was interpreted by the radiologist and I reviewed the impression. The impression is as follows: When compared to similar study dated 03/17/2024, there continues to be metallic artifact at the GE junction and L4-S1 levels. There is a right pelvic cyst (likely ovarian). There is evidence of chronic arteriosclerosis and degenerative spondylosis. Nothing new or acute on this noncontrast study. Counseled pt/family regarding: lab results, diagnosis, need for follow-up, rad results Medical Desision Making - Diagnostic Testing Diagnostic test were ordered, analyzed, and reviewed by me: Yes Radiological Interpretation: Reviewed by me, Teleradiologist Report - Risk of complications Low Risk: Low risk of morbidity from additional dx testing or treatment - Departure Departure Disposition: Home Clinical Impression: Mononucleosis Condition: Stable Critical Care Time: No Referrals: BELLA NEELY DO [Primary Care Provider, [facility]] - Follow up/PCP as directed Additional Instructions: Drink plenty of fluids. Use Tylenol and ibuprofen for aches and pains and fever control. Call your primary care provider today, 08/05/2025, to make arrangements for follow-up appointment to be seen in approximately 3 to 5 days for further evaluation management. Forms: Work/School Release Form
[2025-08-05] MEDS ORDERED: PROTONIX 40 MG IV IV ONE (11:17)
[2025-08-05] MEDS: PROTONIX 40 MG IV IV ONE (11:22)
[2025-08-05 11:37] LABS: BASOPHIL % 0.4 % (0.1-1.2); Basophil (Absolute #) 0.04 x10^3/uL (0.01-0.08); Eosinophil (Absolute #) 0.05 x10^3/uL (0.04-0.36); Hematocrit 42.6 % (34.1-44.9); Hemoglobin 13.9 g/dL (11.2-15.7); IMMATURE GRAN # 0.03 x10^3u/L (0.001-0.031); IMMATURE GRAN % 0.3 % (0.001-0.429); Lymphocyte (Absolute #) 1.03 x10^3/uL (1.18-3.74); Mean Corpuscular Hemoglobin 29.0 pg (25.6-32.2); Mean Corpuscular Hgb Concent. 32.6 g/dL (32.2-35.5); Monocyte (Absolute #) 0.60 x10^3/uL (0.24-0.86); NUCLEATED RBC # 0.00 x10^3u/L (0.00-0.012); NUCLEATED RBC % 0.0 % (0.00-0.2); Platelet Count 312 x10^3/uL (182-369); Red Blood Count 4.79 x10^6/uL (3.93-5.22); White Blood Count 9.8 x10^3/uL (3.98-10.04)
[2025-08-05 11:44] LABS: Calcium 8.7 mg/dL (8.4-10.2); Carbon Dioxide 18.0 mmol/L (22-30); Creatinine 1 0.64 mg/dL (0.52-1.04); EST GLOMERULAR FILTRATION RATE 106.3 ML/MIN; Glucose 70.0 mg/dL (74-106); Potassium 3.7 mmol/L (3.5-5.1); SGOT/AST 22.0 U/L (14-36); SGPT/ALT 13.0 U/L (0-35); Total Protein 7.3 g/dL (6.3-8.2)
[2025-08-05 12:08] LABS: INFLUENZA A NEGATIVE (NEGATIVE); INFLUENZA B NEGATIVE (NEGATIVE); RESPIRATORY SYNCTIAL VIRUS NEGATIVE (NEGATIVE); SARS-CoV-2 Xpert Express NEGATIVE (NEGATIVE)
--- NOTE | 2025-08-05 13:16 | XRAY ---
Indication: Pain. Diarrhea. Multiple contiguous axial images obtained through the abdomen and pelvis without contrast. Comparison: March 17, 2024 Lung bases again demonstrates minimal fibrosis/scarring. No infiltrate or effusion. Heart not enlarged. There is again metallic beam artifact at gastroesophageal junction and L4-S1 fusion hardware. Noncontrasted stomach and bowel loops appear nonobstructed with normal appendix. Again hysterectomy. Again 3.6 x 2.2 cm right pelvic cyst, previously 5.3 x 3.8 cm. No free fluid/air. Remaining liver, gallbladder, pancreas, spleen, adrenal glands, kidneys, ureters, and bladder are unremarkable for noncontrast exam. Again minimal scattered aortic calcifications without AAA. Osseous structures intact again with mild lower lumbar degenerative changes. Impression: 1. Again metallic beam artifact at GE junction and L4-S1 levels. 2. Smaller right pelvic cyst with measurements above, probably benign and probably ovary in etiology. 3. Chronic findings including arteriosclerotic disease and degenerative spondylosis. 4. No new/acute findings on this noncontrast exam.
[2025-08-05 14:06] VITALS: BP 109/65; PULSE 87; RESP 18
[2025-08-05 14:22] VITALS: O2SAT 100
== END 2025-08-05 14:37 | disposition home or self-care (01) ==
LOC: ED 10:24
DX: B27.90 Infectious mononucleosis, unspecified without complication (principal); R19.7 Diarrhea, unspecified; R51.9 Headache, unspecified; R10.9 Unspecified abdominal pain; I10 Essential (primary) hypertension; E11.9 Type 2 diabetes mellitus without complications; Z79.85 Long-term (current) use of injectable non-insulin antidiabetic drugs; Z79.899 Other long term (current) drug therapy; Z59.12 Inadequate housing utilities